=== PATIENT | female | born 2000 | race African-American/Black ===

== ENCOUNTER 2021-04-29 08:54 | Emergency (ER) | payer MEDICAID, SELFPAY ==
--- NOTE | ~2021-04-29 | US_ITS ---
EXAMINATION: US OBSTETRICAL ULTRASOUND CLINICAL INFORMATION: Right lower quadrant pain. Early . Quantitative beta hCG 45 COMPARISON: None. LMP: 03/07/2021. Gestational age by maternal dates is 7 weeks 4 days. Estimated date of delivery by maternal dates is 12/12/2021. TECHNIQUE: Transabdominal and transvaginal first trimester OB ultrasound FINDINGS: The uterus is anteverted and measures 8.2 x 4.3 x 4.8 cm in dimension. No intrauterine is seen. Endometrial thickness is normal measuring 1.1 cm. The cervix is normal appearing. The right ovary measures 1.4 x 4.3 x 1.9 cm. There is a 1.8 x 1.4 x 1.4 cm complex right ovarian cyst. The left ovary measures 2.5 x 4 x 1.5 cm. There is a 6 mm simple left ovarian cyst. There is no fluid in the pelvis. US/US OB pelvic and transvaginal IMPRESSION: No intrauterine seen. This may be due to early gestational age. Follow-up quantitative beta hCG and OB ultrasound recommended.
[2021-04-29 09:34] VITALS: BP 106/71; PULSE 102; RESP 20; TEMP 37.7; O2SAT 97; BMI 25.0
[2021-04-29 09:36] LABS: Appearance Urine HAZY; Color Urine YELLOW; Glucose Urine UA NEG (NEG); Leukocyte Esterase Urine NEG (NEG); Nitrite Urine NEG (NEG); PH 5.5 (5.0-8.0); Specific Gravity - Urine >= 1.030 (1.005-1.025); UACC Culture Trigger NO; Urine Blood TRACE (NEG); Urine Ketones 15 MG/DL (NEG); Urine Protein NEG (NEG-TRACE)
[2021-04-29] MEDS: Ibuprofen 600 MG TABLET PO (09:40)
[2021-04-29 09:43] LABS: COVID-19 Test Positive (Negative); IDNOW Serial# 9DD0AD1C
[2021-04-29 09:45] LABS: UPreg QC Valid YES; Urine Pregnancy WEAKLY POSITIVE (NEGATIVE)
[2021-04-29 09:51] LABS: Bacteria Urine 1+ /LPF; Mucus Urine 2+ /LPF; RBC Urine 0-2 /HPF (0); Squamous Epithelial Cell Urine 2+ /LPF; WBC Urine 0-2 /HPF (0-4)
[2021-04-29 09:57] LABS: Hematocrit 36.6 % (37.0-47.0); Hemoglobin 12.7 g/dl (12.0-16.0); Mean Corpuscular HGB Conc 34.7 g/dl (31.0-35.0); Mean Corpuscular Volume 92.2 fL (80.0-98.0); Mean Platelet Volume 9.5 fL (9.4-12.3); Platelet Count 254 X10*3/uL (160-400); Red Blood Count 3.97 X10*6/uL (4.20-5.50); Red Cell Distribution Width 11.9 % (11.0-16.0); White Blood Count 5.9 X10*3/uL (4.8-10.8)
[2021-04-29 10:15] LABS: Anion Gap 13 (12-20); Blood Urea Nitrogen 7 mg/dL (9-16); Calcium 9.6 mg/dL (8.4-10.2); Carbon Dioxide 21 mmol/L (22-29); Chloride 105 mmol/L (96-108); Creatinine Clr Calc Pharmacy 113.3; Estimated Glomerular Filt Rate > 60; Glucose Random 109 mg/dL (60-115); Potassium 3.7 mmol/L (3.3-5.1); Sodium 135 mmol/L (135-145)
[2021-04-29 10:48] LABS: Alanine Aminotransferase 25 U/L (0-31); Albumin Level 4.5 g/dL (3.5-5.0); Alkaline Phosphatase 44 U/L (39-117); Aspartate Amino Transferase 20 U/L (5-31); Bilirubin Direct 0.2 mg/dL (0.0-0.5); Bilirubin Total 0.3 mg/dL (0.0-1.0); Lipase 13 U/L (8-78); Total Protein 7.8 g/dL (6.5-8.0)
--- NOTE | 2021-04-29 10:53 | ED.GENADULT ---
HPI - General Adult General Chief complaint: General Medical Stated complaint: Body aches/fever Time Seen by Provider: 04/29/21 10:05 Source: patient Mode of arrival: ambulatory History of Present Illness HPI narrative: 20-year-old female with a past medical history of asthma presenting to the ED complaining of body aches, myalgias, fever T-max 102? since this morning. Also reports abdominal cramping since yesterday, LMP unknown. Denies cough, CP, SOB, ear pain, throat pain, vaginal bleeding, vaginal discharge, dysuria /hematuria Onset (ago): day(s) Related Data Allergies Allergy/AdvReac Type Severity Reaction Status Date / Time No Known Allergies Allergy Unverified 12/29/19 19:04 [No Known Allergies*] Review of Systems Review of Systems: Constitutional:+ Fever, No Chills, No Night Sweats, No Fatigue, + Malaise ENT/Mouth: No Ear Pain, No Nasal Congestion, No Sinus Pain, No Hoarseness, No sore throat, No Rhinorrhea Eyes: No Eye Pain, No Swelling, No Redness Cardiovascular: No Chest Pain, No SOB, No Orthopnea, No Edema, No Palpitations Respiratory: No Cough, No Sputum, No Wheezing, No Dyspnea Gastrointestinal: No Nausea, No Vomiting, No Diarrhea, No Constipation, + Abdominal cramping Genitourinary: No irregular bleeding, No Dysuria, No Urinary Frequency, No Hematuria, No Flank Pain, No Urinary Flow Changes Musculoskeletal: No joint pain, + Myalgias, No Joint Swelling Skin: No Skin Lesions, No rash Neuro: No Weakness, No Dizziness, No Headache Yes all other systems are reviewed and are negative [facility] Past Medical History Attestation statement: The following information was validated with the patient. Medical History Asthma Social History Social History Advance Directives: No Advance Directives Information Provided: No Physical Exam Vital Signs: Vital Signs: Last Vital Signs Temp 99.8 F 04/29/21 09:34 Pulse 102 H 04/29/21 09:34 Resp 20 04/29/21 09:34 BP 106/71 04/29/21 09:34 Pulse Ox 97 04/29/21 09:34 BMI result Body Mass Index 25.0 Const: General: cooperative, healthy appearing and no acute distress Orientation/consciousness: patient oriented x3 Limitations: no limitations HENMT: Head: Yes normal to inspection and Yes atraumatic Ears: hearing grossly normal bilaterally General nose exam: Normal external nose present Face and sinus: Yes normal facial exam Eyes: General: appearance normal, both eyes and all related structures EOM: EOMs intact bilaterally Neck: Neck: Yes normal visual inspection and Yes no meningeal signs Resp: Effort & Inspection: normal respiratory effort and no respiratory distress Auscultation: clear to auscultation bilaterally, no rales, no rhonchi and no wheezes Cardio: Rate: regular rate Heart sounds: S1 normal heart sound present and S2 normal heart sound present GI: Inspection: Yes normal to inspection Palpation (GI): Soft to palpation, Tenderness to palpation present (GI) ( left suprapubic area) in the LLQ (mild), no guarding and not rigid : Other: exam deferred Skin: Rashes: no rashes Wounds: no wounds Neuro: General: patient oriented x3 and no meningeal signs Gait exam (Neuro): Normal gait present Extrem: General: Yes normal to inspection and Yes no pedal edema Course Course Course Narrative: - UA with 15 ketones, not infected. Urine weakly positive > will obtain additional labs and pelvic ultrasound - COVID-19 positive - no leukocytosis. H&H stable. Labs otherwise unremarkable. Beta quant 45 -1205--US OB pelvic and transvaginal IMPRESSION: No intrauterine seen. This may be due to early gestational age. Follow-up quantitative beta hCG and OB ultrasound recommended. >> results discussed with patient including worrisome signs and symptoms and strict return precautions including continued fever, abdominal pain vaginal bleeding/ discharge, SOB, etc, and needed follow-up for repeat hCG in 48 hours. Patient verbalized understanding & feels safe for discharge home at this time Medical Decision Making MDM Narrative Medical decision making narrative: 20-year-old female with a past medical history of asthma presenting to the ED complaining of body aches, myalgias, fever T-max 102? since this morning. Also reports abdominal cramping since yesterday, LMP unknown. on exam low-grade fever 99.8, tachycardic likely from fever, lungs CTA, abdomen soft with mild LLQ/L suprapubic tenderness, no rebound or guarding. Denies related complaints including vaginal bleeding/ discharge. Concern for viral syndrome/COVID-19 vs vs ectopic. lower concern for diverticulitis. Rule out UTI plan: Labs, UA, urine , COVID-19 testing, +/- Ob ultrasound Medical Records Medical records reviewed: Yes I reviewed the patient's medical records. Lab Data Lab results reviewed: Yes I reviewed the patient's lab results. Result diagrams: 04/29/21 09:50 04/29/21 09:51 Labs: Lab Results 04/29/21 04/29/21 04/29/21 Range/Units 09:20 09:25 09:25 WBC (4.8-10.8) X10*3/uL RBC (4.20-5.50) X10*6/uL Hgb (12.0-16.0) g/dl Hct (37.0-47.0) % MCV (80.0-98.0) fL MCH (27.0-33.0) pg MCHC (31.0-35.0) g/dl RDW (11.0-16.0) % Plt Count (160-400) X10*3/uL MPV (9.4-12.3) fL Absolute Nucleated RBC (0.0-0.012) X10*3/uL Nucleated RBC % (auto) (0.0-0.2) /100WBC Sodium (135-145) mmol/L Potassium (3.3-5.1) mmol/L Chloride (96-108) mmol/L Carbon Dioxide (22-29) mmol/L Anion Gap (12-20) BUN (9-16) mg/dL Creatinine (0.5-1.4) mg/dL Estim Creat Clear Calc Estimated GFR Random Glucose (60-115) mg/dL Calcium (8.4-10.2) mg/dL Total Bilirubin (0.0-1.0) mg/dL Direct Bilirubin (0.0-0.5) mg/dL AST (5-31) U/L ALT (0-31) U/L Alkaline Phosphatase (39-117) U/L Total Protein (6.5-8.0) g/dL Albumin (3.5-5.0) g/dL Lipase (8-78) U/L Beta HCG, Quant mIU/mL Urine Color YELLOW Urine Appearance HAZY Urine pH 5.5 (5.0-8.0) Ur Specific [place] >= 1.030 H (1.005-1.025) Urine Protein NEG (NEG-TRACE) MG/DL Urine Glucose (UA) NEG (NEG) MG/DL Urine Ketones 15 (NEG) MG/DL Urine Blood TRACE (NEG) Urine Nitrite NEG (NEG) Ur Leukocyte Esterase NEG (NEG) Urine RBC 0-2 (0) /HPF Urine WBC 0-2 (0-4) /HPF Ur Squamous Epith Cells 2+ /LPF Urine Bacteria 1+ /LPF Urine Mucus 2+ /LPF Urine Test WEAKLY POSITIVE H (NEGATIVE) COVID-19 (STEPHEN) Positive A (Negative) COVID-19 Clin Com See Note 04/29/21 04/29/21 Range/Units 09:50 09:51 WBC 5.9 (4.8-10.8) X10*3/uL RBC 3.97 L (4.20-5.50) X10*6/uL Hgb 12.7 (12.0-16.0) g/dl Hct 36.6 L (37.0-47.0) % MCV 92.2 (80.0-98.0) fL MCH 32.0 (27.0-33.0) pg MCHC 34.7 (31.0-35.0) g/dl RDW 11.9 (11.0-16.0) % Plt Count 254 (160-400) X10*3/uL MPV 9.5 (9.4-12.3) fL Absolute Nucleated RBC 0.000 (0.0-0.012) X10*3/uL Nucleated RBC % (auto) 0.0 (0.0-0.2) /100WBC Sodium 135 (135-145) mmol/L Potassium 3.7 (3.3-5.1) mmol/L Chloride 105 (96-108) mmol/L Carbon Dioxide 21 L (22-29) mmol/L Anion Gap 13 (12-20) BUN 7 L (9-16) mg/dL Creatinine 0.74 (0.5-1.4) mg/dL Estim Creat Clear Calc 113.3 Estimated GFR > 60 Random Glucose 109 (60-115) mg/dL Calcium 9.6 (8.4-10.2) mg/dL Total Bilirubin 0.3 (0.0-1.0) mg/dL Direct Bilirubin 0.2 (0.0-0.5) mg/dL AST 20 (5-31) U/L ALT 25 (0-31) U/L Alkaline Phosphatase 44 (39-117) U/L Total Protein 7.8 (6.5-8.0) g/dL Albumin 4.5 (3.5-5.0) g/dL Lipase 13 (8-78) U/L Beta HCG, Quant 45 mIU/mL Urine Color Urine Appearance Urine pH (5.0-8.0) Ur Specific [place] (1.005-1.025) Urine Protein (NEG-TRACE) MG/DL Urine Glucose (UA) (NEG) MG/DL Urine Ketones (NEG) MG/DL Urine Blood (NEG) Urine Nitrite (NEG) Ur Leukocyte Esterase (NEG) Urine RBC (0) /HPF Urine WBC (0-4) /HPF Ur Squamous Epith Cells /LPF Urine Bacteria /LPF Urine Mucus /LPF Urine Test (NEGATIVE) COVID-19 (STEPHEN) (Negative) COVID-19 Clin Com Discharge Plan Discharge Clinical Impression: COVID-19, Patient Disposition: Home, Self-Care Instructions: (ED), COVID-19 (Coronavirus Disease 2019) (ED) Additional Instructions: you are very early . The ultrasound does not show any intrauterine , as expected due to early gestational age. However it is important to have repeat blood work in 48 hours to monitor level. It is possible this is an ectopic meaning not in the correct location with her abdominal pain. If pain persists /worsens, he developed vaginal bleeding/discharge please return to the ED immediately please call the OBGYN today, and establish care you also are positive for COVID-19. At this time you will be okay for discharge. Please self isolate for 10-14 days. Do not expose yourself to others. You may not go to work or school. Please continue to follow cold instructions and wash your hands frequently. You may take Tylenol / Motrin as directed on the bottle for pain or fever. If you have constant or persistent shortness of breath, fever unresolved with medications, chest pain, or your unable to eat or drink please return to the ED CDC Guidelines for home isolation: - Stay away from others - WEAR A MASK if you are sick AND STAY HOME - Cover your mouth and nose with a tissue when you cough or sneeze. Dispose of tissues in a lined trash can and wash your hands immediately with soap and water for at least 20 seconds. If soap and water are not available, clean hands with alcohol-based hand life trainer that contains at least 60% alcohol. - Clean your hands often with soap and water for at least 20 seconds - Avoid touching your eyes, nose and mouth with unwashed hands - Do not share dishes, drinking glasses, cups, eating utensils, towels, or bedding with other people in your home. After using these items, wash them thoroughly with soap and water or put in the vamp strap ironer. - Clean high-touch surfaces in your isolation area ( sick room and bathroom) every day; let a caregiver clean and disinfect high-touch surfaces in other areas of the home. Clean the area or item with soap and water or another detergent if it is dirty. Then, use a household disinfectant. - Limit contact with pets and animals: If you must care for a pet, wash your hands before and after interacting with them) Referrals: Yao Brown MD [Physician] - 2 days
[2021-04-29 10:54] LABS: HCG Quantitative 45 mIU/mL
[2021-04-29] MEDS: Acetaminophen 325 MG TABLET 650 MG PO (10:58)
--- NOTE | 2021-04-29 12:23 | PC.NURSE ---
patient left without discharge paperwork
== END 2021-04-29 12:24 | disposition home or self-care (01) ==
PROVIDERS: Physician Assistant; Emergency Provider Emergency Medicine
DX: O98.511 Other viral diseases complicating pregnancy, first trimester (principal); U07.1 COVID-19; Z3A.01 Less than 8 weeks gestation of pregnancy
CPT/HCPCS: 36415; 76801; 76817; 80048; 80076; 81001; 81025; 83690; 84702; 85027; 87635; 99283; 99284

== ENCOUNTER 2022-05-25 00:15 | Emergency (ER) | payer MEDICAID, SELFPAY ==
--- NOTE | 2022-05-25 | ECG_ITS ---
Test Reason : chest pain Blood Pressure : / mmHG Vent. Rate : 063 BPM Atrial Rate : 063 BPM P-R Int : 122 ms QRS Dur : 092 ms QT Int : 396 ms P-R-T Axes : 058 079 032 degrees QTc Int : 405 ms Normal sinus rhythm with sinus arrhythmia Normal ECG When compared with ECG of 22-JUL-2017 12:18, No significant change was found Referred By: Generic ED Physician Electronically Signed By:RENAE CELIS MD
--- NOTE | ~2022-05-25 | XR_ITS ---
EXAMINATION: XR CHEST CLINICAL INFORMATION: Chest pain COMPARISON: 07/22/2017 TECHNIQUE: 2 views of the chest were obtained. FINDINGS: Normal symmetric lung volumes. No parenchymal consolidation. No pleural effusion. No pneumothorax. Cardiomediastinal silhouette and pulmonary vascularity are within normal limits. No acute osseous abnormalities. XR/XR chest 2V IMPRESSION: Clear lungs
[2022-05-25 00:29] VITALS: BP 141/85; PULSE 68; RESP 16; TEMP 36.7; O2SAT 99; BMI 29.9
[2022-05-25 01:33] LABS: MANUAL DIFF FLAG NO
[2022-05-25 01:34] LABS: Basophils Absolute Auto 0.1 X10*3/uL (0.0-0.2); Basophils Percent Auto 0.5 % (0-2); Eosinophils Absolute Auto 0.2 X10*3/uL (0.0-0.4); Eosinophils Percent Auto 2.3 % (0-4); Hematocrit 40.4 % (37.0-47.0); Hemoglobin 13.8 g/dl (12.0-16.0); Imm Gran Abs Auto 0.02 X10*3/uL (0.00-0.03); Imm Gran Pct Auto 0.2 % (0.0-0.4); Lymphocytes Absolute Auto 4.6 X10*3/uL (1.2-4.9); Lymphocytes Percent Auto 49.6 % (20-40); Mean Corpuscular HGB Conc 34.2 g/dl (31.0-35.0); Mean Corpuscular Hemoglobin 31.4 pg (27.0-33.0); Mean Corpuscular Volume 91.8 fL (80.0-98.0); Mean Platelet Volume 9.4 fL (9.4-12.3); Monocytes Absolute Auto 0.7 X10*3/uL (0.1-1.2); Monocytes Percent Auto 7.4 % (2-11); Neutrophils Absolute Auto 3.7 x10*3/uL (2.0-8.3); Platelet Count 350 X10*3/uL (160-400); Red Cell Distribution Width 11.9 % (11.0-16.0); White Blood Count 9.2 X10*3/uL (4.8-10.8)
[2022-05-25 01:57] LABS: Alanine Aminotransferase 16 U/L (0-31); Albumin Level 4.2 g/dL (3.5-5.0); Alkaline Phosphatase 45 U/L (39-117); Anion Gap 14 (12-20); Aspartate Amino Transferase 19 U/L (5-31); Bilirubin Total 0.3 mg/dL (0.0-1.0); Blood Urea Nitrogen 12 mg/dL (9-16); Calcium 9.3 mg/dL (8.4-10.2); Carbon Dioxide 22 mmol/L (22-29); Chloride 107 mmol/L (96-108); Creatinine Clr Calc Pharmacy 134.1; Estimated Glomerular Filt Rate > 60; Glucose Random 88 mg/dL (60-115); Potassium 4.1 mmol/L (3.3-5.1); Sodium 139 mmol/L (135-145); Total Protein 7.3 g/dL (6.5-8.0)
[2022-05-25 02:17] LABS: Troponin-I High Sensitivity < 3.5 ng/L (<3.5-17.0)
--- NOTE | 2022-05-25 02:33 | ED_ITS ---
HPI - Chest Pain General Chief Complaint: Chest Pain Stated Complaint: CP, Migraine, dizziness Time Seen by Provider: 05/25/22 02:08 Source: patient Mode of arrival: ambulatory Limitations: no limitations History of Present Illness HPI narrative: 21-year-old female presents with 2 complaints of migraine headache and chest pain. Regarding the chest pain, substernal. It is pressure-like in nature. Does not radiate. It is worse with deep inspiration. It is not associated with exertion. She denies any shortness of breath. She does have a cough with clear mucus production. She denies Any fevers or chills. Regarding her migraine headache, is right-sided. The pain does not radiate. Associated with photo and phonophobia. She has no fevers. She denies any neck pain or stiffness. She denies any focal neurologic deficits. She does have history of migraine headaches. Her typical migraine headache can vary from location to location. Prior treatment today included tramadol with moderate help. It was associated with nonbilious vomiting. She did have some slight streaks of blood in her vomitus. Related Data Previous Rx's Medication Instructions Recorded famotidine 20 mg tablet 20 mg PO BID #20 tabs 05/25/22 prochlorperazine maleate 10 mg 10 mg PO Q8H PRN nausea and 05/25/22 tablet (Compazine) vomiting, headache #10 tabs Allergies Allergy/AdvReac Type Severity Reaction Status Date / Time No Known Allergies Allergy Unverified 12/29/19 19:04 [No Known Allergies*] Review of Systems Review of Systems: CONSTITUTIONAL: Denies weight loss, fever and chills. HEENT: Denies changes in vision and hearing. RESPIRATORY: Denies SOB and cough. CV: Denies palpitations + CP. GI: Denies abdominal pain, + nausea, vomiting. : Denies dysuria and urinary frequency. MSK: Denies myalgia and joint pain. SKIN: Denies rash and pruritus. NEUROLOGICAL: Positive headache and - syncope. PSYCHIATRIC: Denies recent changes in mood. Denies anxiety and depression. All other ROS are negative unless in HPI PMFSH Past Medical History Medical History Asthma Social History Social History Smoked in Last 30 Days: No Use of substances other than those prescribed or required for medical reasons: Yes Substance Use Type: Marijuana Advance Directives: No Patient : No Physical Exam Vital Signs: Vital Signs: Last Vital Signs Temp 98.1 F 05/25/22 00:29 Pulse 68 05/25/22 00:29 Resp 16 05/25/22 00:29 BP 141/85 H 05/25/22 00:29 Pulse Ox 99 05/25/22 00:29 O2 Del Method 05/25/22 00:29 BMI result Body Mass Index 29.9 GEN: Well developed, no acute distress, alert, oriented HEENT: Normocephalic, atraumatic, normal external ears, nose appears normal, no oropharyngeal edema or exudates Eyes: Normal to appearance Neck: Supple, no lymphadenopathy Respiratory: Talks in complete sentences, no respiratory distress, clear to auscultation bilaterally Cardiovascular: Regular rate and rhythm, no murmurs rubs or gallops Abdomen: Soft, nontender, nondistended, no guarding, no rebound Back: No CVA tenderness Extremities: No clubbing cyanosis or edema Neurologic: No focal neurologic deficits, cranial nerves 2-12 intact, strength is 5/5 bilaterally, gait normal Skin: No rash Course Course Course Narrative: 21-year-old female with no major medical problems presents with chest pain and migraine headache. Chest pain is atypical, not associated with exertion. She has no cardiac history. It is substernal in tight nature. It seems to be associated with nausea vomiting. Is worse with deep inspiration. Patient has no history of PE or DVT. She has no risk factors such as recent long distance travel, immobilization or recent surgery. Her chest pain was not reproducible. Chest x-ray was clear. EKG showed no cardiac ischemia or cardiac dysrhythmia. At this time, doubt her symptoms are cardiac, pulmonary embolus especially since her PERC score is 0. Is quite possible that this could be reflux related specially given the nausea and vomiting. Will start patient on an H2 alexandro. She can follow up with her primary care provider for progressive symptoms. Regarding patient's migraine headache. She does have a history migraine heada ches. They vary from location location. Her other symptoms or other was typical for her. The patient received Toradol, Tylenol, famotidine and Reglan. Patient did not wish to stay at this time M wants to be discharged. There are no focal deficits, no trauma, doubt need for imaging studies at this time. I discussed all results with the patient, all discharge instructions, discussed side effects of medications. All questions were addressed and answered. Patient is aware of when she should return back to the emergency department including progression of chest pain, worsening migraine or any other concerning symptoms. Medical Decision Making Medical Decision Making [facility] Narrative: 21-year-old female with no major medical problems presents with chest pain and migraine headache. Chest pain is atypical, not associated with exertion. She has no cardiac history. It is substernal in tight nature. It seems to be associated with nausea vomiting. Is worse with deep inspiration. Patient has no history of PE or DVT. She has no risk factors such as recent long distance travel, immobilization or recent surgery. Her chest pain was not reproducible. Chest x-ray was clear. EKG showed no cardiac ischemia or cardiac dysrhythmia. At this time, doubt her symptoms are cardiac, pulmonary embolus especially since her PERC score is 0. Is quite possible that this could be reflux related specially given the nausea and vomiting. Will start patient on an H2 alexandro. She can follow up with her primary care provider for progressive symptoms. Regarding patient's migraine headache. She does have a history migraine headaches. They vary from location location. Her other symptoms or other was typical for her. The patient received Toradol, Tylenol, famotidine and Reglan. Patient did not wish to stay at this time M wants to be discharged. There are no focal deficits, no trauma, doubt need for imaging studies at this time. I discussed all results with the patient, all discharge instructions, discussed side effects of medications. All questions were addressed and answer ed. Patient is aware of when she should return back to the emergency department including progression of chest pain, worsening migraine or any other concerning symptoms. Differential Diagnosis Differential Diagnoses: The differential diagnosis associated with the presentation includes ( Chest pain, atypical chest pain, cardiac chest pain, bronchitis, pneumonia, reflux, migraine headache, tension headache, cluster headache) migraine headache, atypical chest Admission/Observation Consideration of admission/observation: Escalation of care including admission/o bservation considered ( no indication for hospitalization, chest pain is atypical, unlikely to be cardiac, migraine headache is also typical) Lab Data [facility] Lab Attestation statement: I reviewed the patient's lab results. 05/25/22 00:02 05/25/22 01:26 Labs: Lab Results 05/25/22 05/25/22 05/25/22 Range/Units 00:02 01:26 01:26 WBC 9.2 (4.8-10.8) X10*3/uL RBC 4.40 (4.20-5.50) X10*6/uL Hgb 13.8 (12.0-16.0) g/dl Hct 40.4 (37.0-47.0) % MCV 91.8 (80.0-98.0) fL MCH 31.4 (27.0-33.0) pg MCHC 34.2 (31.0-35.0) g/dl RDW 11.9 (11.0-16.0) % Plt Count 350 D (160-400) X10*3/uL MPV 9.4 (9.4-12.3) fL Immature Gran % (Auto) 0.2 (0.0-0.4) % Neut % (Auto) 40.0 L (45-73) % Lymph % (Auto) 49.6 H (20-40) % [place] % (Auto) 7.4 (2-11) % Eos % (Auto) 2.3 (0-4) % Baso % (Auto) 0.5 (0-2) % Lymph # (Auto) 4.6 (1.2-4.9) X10*3/uL [place] # (Auto) 0.7 (0.1-1.2) X10*3/uL Eos # (Auto) 0.2 (0.0-0.4) X10*3/uL Baso # (Auto) 0.1 (0.0-0.2) X10*3/uL Abs Immat Gran (auto) 0.02 (0.00-0.03) X10*3/uL Absolute Neuts (auto) 3.7 (2.0-8.3) x10*3/uL Absolute Nucleated RBC 0.000 (0.0-0.012) X10*3/uL Nucleated RBC % (auto) 0.0 (0.0-0.2) /100WBC Sodium 139 (135-145) mmol/L Potassium 4.1 (3.3-5.1) mmol/L Chloride 107 (96-108) mmol/L Carbon Dioxide 22 (22-29) mmol/L Anion Gap 14 (12-20) BUN 12 (9-16) mg/dL Creatinine 0.70 (0.5-1.4) mg/dL Estim Creat Clear Calc 134.1 Estimated GFR > 60 Random Glucose 88 (60-115) mg/dL Calcium 9.3 (8.4-10.2) mg/dL Total Bilirubin 0.3 (0.0-1.0) mg/dL AST 19 (5-31) U/L ALT 16 (0-31) U/L Alkaline Phosphatase 45 (39-117) U/L Troponin I High Sens < 3.5 (<3.5-17.0) ng/L Total Protein 7.3 (6.5-8.0) g/dL Albumin 4.2 (3.5-5.0) g/dL Independent Interpretation I performed an independent interpretation of an: EKG ( normal sinus rhythm heart rate 63, nonspecific T-wave flattening in lead 3, no acute ST elevations depressions, normal intervals) and Plain X-Ray ( no acute cardiopulmonary disease) Radiology Impression Discussion of test interpretation with radiology: I have reviewed the radiologist's reading. (IMPRESSION: Clear lungs Dictated By:Elvis Hdez MDSigned By:<Electronically signed by Elvis Hdez MD in [place]>05/25/22 0104) External Record Review External record reviewed: Outpatient record Tests considered The following testing was considered but not selected: CT scan of head Prescription Management I considered prescription management with: Pain Medication Discharge Plan Discharge Clinical Impression: Atypical chest pain, Migraine Patient Disposition: Home, Self-Care Instructions: Chest Pain (ED), Migraine Headache (ED) Prescriptions: New prochlorperazine maleate [Compazine] 10 mg tablet 10 mg PO Q8H PRN (Reason: nausea and vomiting, headache) Qty: 10 0RF famotidine 20 mg tablet 20 mg PO BID Qty: 20 0RF Referrals: Stephy Espitia [Emergency Nurse] - 3 days
[2022-05-25] MEDS: Acetaminophen 325 MG TABLET 975 MG PO (02:45)
[2022-05-25] MEDS: Famotidine 20 MG TABLET PO (02:46)
[2022-05-25] MEDS: Metoclopramide HCl 10 MG TABLET PO (02:51)
--- NOTE | 2022-05-25 02:54 | PC.NURSE ---
pt medicated according to mar. pt refused ketorolac im. dr navarro made aware. pt boyfriend at bedside. pt reports 8/10 pain. discharge packet provided to pt. pt verbalized understanding of discharge plan
== END 2022-05-25 02:56 | disposition home or self-care (01) ==
PROVIDERS: Emergency Provider Emergency Medicine
DX: R07.89 Other chest pain (principal); G43.909 Migraine, unspecified, not intractable, without status migrainosus; R42 Dizziness and giddiness; Z79.899 Other long term (current) drug therapy
CPT/HCPCS: 36415; 71046; 80053; 84484; 85025; 93005; 96372; 99284

== ENCOUNTER 2022-05-28 22:45 | Emergency (ER) | payer MEDICAID, SELFPAY ==
--- NOTE | 2022-05-28 | ECG_ITS ---
Test Reason : cp Blood Pressure : / mmHG Vent. Rate : 087 BPM Atrial Rate : 087 BPM P-R Int : 132 ms QRS Dur : 084 ms QT Int : 334 ms P-R-T Axes : 056 074 -07 degrees QTc Int : 401 ms Normal sinus rhythm T wave abnormality, consider inferior ischemia Abnormal ECG When compared with ECG of 25-MAY-2022 01:13, T wave inversion now evident in Inferior leads Nonspecific T wave abnormality now evident in Anterolateral leads Referred By: Generic ED Physician Electronically Signed By:Daljit Jimenes
--- NOTE | ~2022-05-28 | XR_ITS ---
EXAMINATION: XR CHEST CLINICAL INFORMATION: Vomiting. Chest pain. Rule out pneumomediastinum. COMPARISON: 05/25/2022 TECHNIQUE: 2 views of the chest were obtained. FINDINGS: Cardiac leads overlie the chest. The lungs are well expanded. There is no focal consolidation, edema, or effusion. No pneumothorax. The cardiomediastinal silhouette is within normal limits. There is no pneumomediastinum. No acute osseous abnormality. No free intraperitoneal air. XR/XR chest 2V IMPRESSION: Clear lungs. No evidence of pneumomediastinum.
[2022-05-28 22:46] VITALS: BP 125/85; PULSE 95; RESP 18; TEMP 36.8; O2SAT 97; BMI 29.9
[2022-05-28 23:06] LABS: MANUAL DIFF FLAG NO
[2022-05-28 23:07] LABS: Basophils Percent Auto 0.3 % (0-2); Eosinophils Absolute Auto 0.2 X10*3/uL (0.0-0.4); Hematocrit 40.4 % (37.0-47.0); Hemoglobin 13.7 g/dl (12.0-16.0); Imm Gran Abs Auto 0.01 X10*3/uL (0.00-0.03); Imm Gran Pct Auto 0.1 % (0.0-0.4); Lymphocytes Absolute Auto 3.7 X10*3/uL (1.2-4.9); Lymphocytes Percent Auto 40.5 % (20-40); Mean Corpuscular HGB Conc 33.9 g/dl (31.0-35.0); Mean Corpuscular Hemoglobin 31.3 pg (27.0-33.0); Mean Corpuscular Volume 92.2 fL (80.0-98.0); Mean Platelet Volume 9.5 fL (9.4-12.3); Monocytes Absolute Auto 0.7 X10*3/uL (0.1-1.2); Monocytes Percent Auto 8.1 % (2-11); Neutrophils Absolute Auto 4.4 x10*3/uL (2.0-8.3); Platelet Count 350 X10*3/uL (160-400); Red Blood Count 4.38 X10*6/uL (4.20-5.50); Red Cell Distribution Width 11.9 % (11.0-16.0)
[2022-05-28 23:26] LABS: Anion Gap 13 (12-20); Blood Urea Nitrogen 15 mg/dL (9-16); Calcium 9.6 mg/dL (8.4-10.2); Carbon Dioxide 24 mmol/L (22-29); Chloride 107 mmol/L (96-108); Creatinine Clr Calc Pharmacy 118.8; Estimated Glomerular Filt Rate > 60; Glucose Random 92 mg/dL (60-115); Potassium 3.9 mmol/L (3.3-5.1); Sodium 140 mmol/L (135-145)
[2022-05-28 23:31] LABS: HCG Quantitative < 2 mIU/mL; Troponin-I High Sensitivity < 3.5 ng/L (<3.5-17.0)
[2022-05-28 23:53] VITALS: BP 112/54; PULSE 62; RESP 16; TEMP 36.6; O2SAT 99
--- NOTE | 2022-05-29 00:03 | ED_ITS ---
HPI - Chest Pain General Chief Complaint: Chest Pain Stated Complaint: Chest pain, vomiting Time Seen by Provider: 05/28/22 23:26 Source: patient and family Mode of arrival: ambulatory Limitations: no limitations History of Present Illness HPI narrative: 21-year-old female presented with chest pain and vomiting brown vomitus this morning. Patient smokes marijuana on a daily basis she smoke earlier in the morning then started to have chest pain and followed by vomiting brown vomitus x1. Now patient has no nausea or vomiting no abdominal pain patient tolerated p.o. intake before coming to the emergency room but still have the chest pain that has been constant since she vomited, described it as burning sensation in the epigastric and mid chest, no radiation was only associated with 1 time vomiting with brown vomitus, patient has been eating with her normal appetite. No fever, no chills declined using any other drugs other than smoking marijuana today. Patient was evaluated for similar presentation 4 days ago. Related Data Previous Rx's Medication Instructions Recorded famotidine 20 mg tablet 20 mg PO BID #20 tabs 05/25/22 prochlorperazine maleate 10 mg 10 mg PO Q8H PRN nausea and 05/25/22 tablet (Compazine) vomiting, headache #10 tabs omeprazole magnesium 20 mg 20 mg PO DAILY #30 tabs 05/29/22 tablet,delayed release (Prilosec OTC) Allergies Allergy/AdvReac Type Severity Reaction Status Date / Time No Known Allergies Allergy Unverified 12/29/19 19:04 [No Known Allergies*] Review of Systems Review of Systems: All other systems are reviewed and are negative Constitutional: Reports as per HPI and Reports no additional constitutional complaints Eyes: Reports as per HPI and Reports no additional eye complaints Reports system reviewed and no additional complaints, except as documented Cardiovascular: Reports as per HPI and Reports no additional cardiovascular complaints Respiratory: Reports as per HPI and Reports no additional respiratory complaints Gastrointestinal: Reports as per HPI and Reports no additional gastrointestinal complaints Genitourinary: Reports no additional female genitourinary complaints Musculoskeletal: Reports no additional musculoskeletal complaints Skin/Breast: Reports system reviewed and no additional complaints, except as docu Psychiatric: Reports no additional psychiatric complaints Endocrine: Reports no additional endocrine complaints Hematologic/Lymphatic: Reports no additional hematologic/lymphatic complaints Allergic/Immunologic: Reports no additional allergic/immunologic complaints Reports system reviewed and no additional complaints, except as documented and Reports Abnormal speech present PMFSH Past Medical History Medical History Asthma Social History Social History Substance Use Type: Marijuana Advance Directives: No Advance Directives Information Provided: Yes Physical Exam Vital Signs: Vital Signs: Last Vital Signs Temp 97.9 F 05/28/22 23:53 Pulse 62 05/28/22 23:53 Resp 16 05/28/22 23:53 BP 112/54 L 05/28/22 23:53 Pulse Ox 99 05/28/22 23:53 O2 Del Method 05/28/22 23:53 BMI result Body Mass Index 29.9 Vital signs have been reviewed as appeared to be correct. Blood pressure normal. Heart rate normal. Respiration rate normal. Temperature normal. Ox ygen saturation normal. Appearance: Alert. Oriented X3. No acute distress. Head: Normal external exam. Normocephalic. Atraumatic. No Bradley signs noted. No raccoon eyes noted Eyes: PERRLA. EOMI. Conjunctiva and sclera normal. Eyelids normal. ENT: TM's Normal. Pharynx normal. Uvula midline. Moist mucous membranes. No trismus noted. No drooling noted. No muffled voice noted. Neck: Normal inspection. Neck supple. FROM. No adenopathy. Thyroid Normal. No meningeal signs. No neck mass noted. CVS: Normal heart rate and rhythm. Heart sound normal. No murmurs noted. Pulses normal throughout. Respiratory: No respiratory distress. Painless inspiration. Breath sounds normal. No wheezes/rales/rhonchi noted. Chest nontender. No accessory muscle usage noted or decreased air movement noted. Abdomen: Soft and nontender. Bowel sounds normal in all 4 quadrants. No dist ention noted. No organomegaly noted. No visible injury noted. Back: No CVA tenderness. Full range of motion noted. Skin: Skin warm and dry. Normal skin color. Normal skin turgor. No rashes/lesi ons/lacerations noted. Extremities: No lower extremity edema. Extremities exhibit normal range of motion. Extremities nontender. Neuro: Oriented X 3. Cranial nerve exam: II-XII are grossly intact No motor deficit. No sensory deficit. Reflexes normal. Course Course Course Narrative: -year-old female came in for chest/epigastric pain evaluation, patient with marijuana use disorder. Patient's symptoms thought to be secondary to gastritis. Unremarkable workup cardiac workup. Patient is able to tolerate p.o. intake in the emergency department with improvement of patient's symptoms. Medical Decision Making Differential Diagnosis Differential Diagnoses: The differential diagnosis associated with the presentation includes (Marijuana induced gastritis, vomiting, anemia, GI bleed, cardiac chest pain.) Lab Data MDM Lab Attestation statement: I reviewed the patient's lab results. 05/28/22 23:02 05/28/22 23:02 Labs: Lab Results 05/28/22 05/28/22 05/28/22 Range/Units 23:02 23:02 23:02 WBC 9.0 (4.8-10.8) X10*3/uL RBC 4.38 (4.20-5.50) X10*6/uL Hgb 13.7 (12.0-16.0) g/dl Hct 40.4 (37.0-47.0) % MCV 92.2 (80.0-98.0) fL MCH 31.3 (27.0-33.0) pg MCHC 33.9 (31.0-35.0) g/dl RDW 11.9 (11.0-16.0) % Plt Count 350 (160-400) X10*3/uL MPV 9.5 (9.4-12.3) fL Immature Gran % (Auto) 0.1 (0.0-0.4) % Neut % (Auto) 49.0 (45-73) % Lymph % (Auto) 40.5 H (20-40) % [place] % (Auto) 8.1 (2-11) % Eos % (Auto) 2.0 (0-4) % Baso % (Auto) 0.3 (0-2) % Lymph # (Auto) 3.7 (1.2-4.9) X10*3/uL [place] # (Auto) 0.7 (0.1-1.2) X10*3/uL Eos # (Auto) 0.2 (0.0-0.4) X10*3/uL Baso # (Auto) 0.0 (0.0-0.2) X10*3/uL Abs Immat Gran (auto) 0.01 (0.00-0.03) X10*3/uL Absolute Neuts (auto) 4.4 (2.0-8.3) x10*3/uL Absolute Nucleated RBC 0.000 (0.0-0.012) X10*3/uL Nucleated RBC % (auto) 0.0 (0.0-0.2) /100WBC Sodium 140 (135-145) mmol/L Potassium 3.9 (3.3-5.1) mmol/L Chloride 107 (96-108) mmol/L Carbon Dioxide 24 (22-29) mmol/L Anion Gap 13 (12-20) BUN 15 (9-16) mg/dL Creatinine 0.79 (0.5-1.4) mg/dL Estim Creat Clear Calc 118.8 Estimated GFR > 60 Random Glucose 92 (60-115) mg/dL Calcium 9.6 (8.4-10.2) mg/dL Troponin I High Sens < 3.5 (<3.5-17.0) ng/L Beta HCG, Quant < 2 mIU/mL Independent Interpretation I performed an independent interpretation of an: EKG (Normal sinus rhythm at 87 beats per minutes, normal axis deviation, normal intervals, diffuse T-wave in version and flattening) and Plain X-Ray (No acute pathology) Radiology Impression Discussion of test interpretation with radiology: I have reviewed the radiologist's reading. Discharge Plan Discharge Clinical Impression: Atypical chest pain, Gastritis Patient Disposition: Home, Self-Care Instructions: Gastritis (ED) Prescriptions: New omeprazole magnesium [Prilosec OTC] 20 mg tablet,delayed release (DR/EC) 20 mg PO DAILY Qty: 30 0RF No Action prochlorperazine maleate [Compazine] 10 mg tablet 10 mg PO Q8H PRN (Reason: nausea and vomiting, headache) Qty: 10 0RF famotidine 20 mg tablet 20 mg PO BID Qty: 20 0RF
--- NOTE | 2022-05-29 00:18 | PC.NURSE ---
this rn assumed care of pt @ 2330. pt changed into hospital gown and placed on computer customer support specialist. pt awaiting to be seen by ed provider
[2022-05-29] MEDS: Famotidine 20 MG TABLET PO (00:31)
[2022-05-29] MEDS: Magnesium Hydrox/Alum Hydrox 30 ML ORAL.SUSP PO (00:31)
--- NOTE | 2022-05-29 01:22 | PC.NURSE ---
per dr lares pt provided with chelsea laxmi and crackers. pt reports to this rn that when using the restroom pt vomited a small amount of brown vomit. pt partner in bed with pt at this time. this was reported to dr lares. awaiting orders at this time
[2022-05-29] MEDS: Ondansetron ODT 4 MG TAB.RAPDIS TRANSLINGU (01:30)
[2022-05-29 01:33] VITALS: BP 121/80; PULSE 63; RESP 16; O2SAT 99
--- NOTE | 2022-05-29 01:36 | PC.NURSE ---
pt partner laying on pt at time of discharge. vss. pt medicated according to mar. pt provided with discharge packet. pt verbalized understanding of discharge plan. pt ambulatory at time of discharge
== END 2022-05-29 01:39 | disposition home or self-care (01) ==
PROVIDERS: Emergency Provider Emergency Medicine
DX: R07.89 Other chest pain (principal); K29.70 Gastritis, unspecified, without bleeding; F12.90 Cannabis use, unspecified, uncomplicated
CPT/HCPCS: 36415; 71046; 80048; 84484; 84702; 85025; 93005; 99283; 99284

== ENCOUNTER 2022-06-29 23:06 | Emergency (ER) | payer MEDICAID, SELFPAY | END 2022-06-30 00:05 | disposition left against medical advice (07) | PROVIDERS: Emergency Provider Emergency Medicine | DX: R07.89 Other chest pain (principal); R42 Dizziness and giddiness ==

== ENCOUNTER 2023-06-23 13:18 | Emergency (ER) | payer MEDICAID, SELFPAY ==
[2023-06-23 13:31] VITALS: BP 128/80; PULSE 72; RESP 16; TEMP 37; O2SAT 98; BMI 31.6
--- NOTE | 2023-06-23 13:35 | ED.GENADULT ---
HPI - General Adult General Chief complaint: Upper Respiratory Symptoms Stated complaint: Sore throat History of Present Illness HPI narrative: Left without completiont of treatment Related Data Previous Rx's Medication Instructions Recorded famotidine 20 mg tablet 20 mg PO BID #20 tabs 05/25/22 prochlorperazine maleate 10 mg 10 mg PO Q8H PRN nausea and 05/25/22 tablet (Compazine) vomiting, headache #10 tabs omeprazole magnesium 20 mg 20 mg PO DAILY #30 tabs 05/29/22 tablet,delayed release (Prilosec OTC) ondansetron 4 mg disintegrating 4 mg PO Q8-12H PRN nausea and 05/29/22 tablet vomiting #7 tabs Allergies Allergy/AdvReac Type Severity Reaction Status Date / Time No Known Allergies Allergy Unverified 12/29/19 19:04 [No Known Allergies*] PMFSH Past Medical History Medical History Asthma Social History Social History Substance Use Type: Marijuana Advance Directives: No Advance Directives Information Provided: No Physical Exam ED Vital Signs: Vital Signs - 24 hr 06/23/23 13:31 Temperature 98.6 F Pulse Rate 72 Respiratory Rate 16 Blood Pressure 128/80 Pulse Oximetry 98 Oxygen Delivery Method Room Air BMI result Body Mass Index 31.6 Course Course Course Narrative: RME: 22 yold female presents to the ED for sore throat, runny nose, bilateral ear pain, for two weeks. SARS and strep ordered Discharge Plan Discharge Clinical Impression: Upper respiratory infection Patient Disposition: Left W/O Completing Treatment Prescriptions: No Action prochlorperazine maleate [Compazine] 10 mg tablet 10 mg PO Q8H PRN (Reason: nausea and vomiting, headache) Qty: 10 0RF famotidine 20 mg tablet 20 mg PO BID Qty: 20 0RF omeprazole magnesium [Prilosec OTC] 20 mg tablet,delayed release (DR/EC) 20 mg PO DAILY Qty: 30 0RF ondansetron 4 mg tablet,disintegrating 4 mg PO Q8-12H PRN (Reason: nausea and vomiting) Qty: 7 0RF Discharge Date/Time: 06/23/23 15:12
== END 2023-06-23 15:12 | disposition left against medical advice (07) ==
PROVIDERS: Emergency Provider Emergency Medicine
DX: J02.9 Acute pharyngitis, unspecified (principal); J06.9 Acute upper respiratory infection, unspecified
CPT/HCPCS: 99281

== ENCOUNTER 2023-09-26 15:52 | Emergency (ER) | payer MEDICAID, SELFPAY ==
[2023-09-26 16:03] VITALS: BP 126/80; PULSE 98; RESP 18; TEMP 36.2; O2SAT 98; BMI 30.8
--- NOTE | 2023-09-26 16:05 | ED.FEMALEGU ---
HPI - Female Genitourinary General Chief complaint: Urogenital-Female Stated complaint: vag discharge Time Seen by Provider: 09/26/23 16:22 Source: patient, RN notes reviewed and old records reviewed Mode of arrival: ambulatory History of Present Illness ED Provider: Courtney Bryant PA-C [facility] Narrative: 22-year-old female with no significant past medical history presenting to the ED complaining internal vaginal irritation/discomfort x1 week s/p new sexual partner without the use of protection. Denies vaginal discharge, lesions, vaginal bleeding, abdominal pain, back pain, nausea, vomiting, dysuria/hematuria. LMP 09/20/2023 Related Data Previous Rx's ?Medication ?Instructions ?Recorded famotidine 20 mg tablet 20 mg PO BID #20 tabs 05/25/22 prochlorperazine maleate 10 mg 10 mg PO Q8H PRN nausea and 05/25/22 tablet (Compazine) vomiting, headache #10 tabs omeprazole magnesium 20 mg 20 mg PO DAILY #30 tabs 05/29/22 tablet,delayed release (Prilosec OTC) ondansetron 4 mg disintegrating 4 mg PO Q8-12H PRN nausea and 05/29/22 tablet vomiting #7 tabs doxycycline hyclate 100 mg tablet 100 mg PO BID 7 days #14 tabs 09/26/23 Allergies Allergy/AdvReac Type Severity Reaction Status Date / Time No Known Allergies Allergy Verified 09/26/23 16:08 [No Known Allergies*] Review of Systems Review of Systems: Constitutional: No Fever, No Chills, No Night Sweats, No Fatigue, No Malaise ENT/Mouth: No Hearing loss, No Ear Pain, No Hoarseness, No sore throat, No Rhinorrhea, No Swallowing Difficulty Cardiovascular: No Chest Pain, No SOB Respiratory: No Cough, No Dyspnea Gastrointestinal: No Nausea, No Vomiting, No Diarrhea, No Constipation, No Abdominal pain Genitourinary: No irregular bleeding, +vaginal irritation, No Dysuria, No Hematuria, No Urinary Incontinence/retention,No Flank Pain Musculoskeletal: No joint pain, No Myalgias, No Joint Swelling Skin: No Skin Lesions, No rash Yes all other systems are reviewed and are negative Constitutional: Constitutional: Reports as per [facility] Past Medical History Attestation statement: The following information was validated with the patient. Source: old records reviewed Medical History Asthma Social History Social History Substance Use Type: Marijuana Advance Directives: No Advance Directives Information Provided: No Physical Exam Vital Signs: Vital Signs: Last Vital Signs Temp 98.4 F 09/26/23 18:13 Pulse 59 09/26/23 18:13 Resp 16 09/26/23 18:13 BP 115/64 09/26/23 18:13 Pulse Ox 97 09/26/23 18:13 O2 Del Method Room Air 09/26/23 18:13 BMI result Body Mass Index 30.8 Const: General: cooperative, healthy appearing and no acute distress Orientation/consciousness: patient oriented x3 Limitations: no limitations HEENT: Head: Yes normal to inspection and Yes atraumatic Ears: hearing grossly normal bilaterally General nose exam: Normal external nose present Face and sinus: Yes normal facial exam Eyes: General: appearance normal, both eyes and all related structures EOM: EOMs intact bilaterally Neck: Neck: Yes normal visual inspection and Yes no meningeal signs Resp: Effort & Inspection: normal respiratory effort and no respiratory distress Cardio: Rate: regular rate GI: Inspection: Yes normal to inspection Palpation (GI): Soft to palpation, nontender, no guarding and not rigid : Speculum Exam - Vagina: normal appearance of the vagina, abnormal vaginal discharge clear and yellow, No vaginal bleeding and nontender Speculum Exam - Cervix: normal appearance of the cervix Bimanual exam- vagina & uterus: normal bimanual exam and no cervical motion tenderness Bimanual Exam- Adnexa, other: normal adnexae OB/external & speculum: No vaginal bleeding Skin: Rashes: no rashes Wounds: no wounds Neuro: General: patient oriented x3, tone normal and no meningeal signs Cranial nerves: Yes CN's II-XII intact bilaterally Gait exam (Neuro): Normal gait present Extrem: General: Yes normal to inspection Course Course Course Narrative: This is a Rapid Medical Examination (RME) performed by Jeevan Pires PA-C in triage. Full HPI, ROS, assessment and treatment plan per primary provider in the Main ED. 22 yo female presents to the ER for evaluation of internal vaginal irritation for the last 1 week. New sexual partner. No vaginal discharge. LMP 09/20/23. Plan: exam in [facility] and negative Results discussed with patient including worrisome signs and symptoms and strict return precautions, and when to return to the emergency department. They verbalized understanding and feel safe for discharge at this time. Medications Administered Discontinued Medications Generic Name Dose Route Start Last Admin Trade Name Baudilio PRN Reason Stop Dose Admin Ceftriaxone Sodium 500 mg/ 0 mg 09/26/23 16:47 09/26/23 18:00 Lidocaine HCl 1 ml IM 09/26/23 16:48 350 kit ONCE ONE Administration Doxycycline Monohydrate 100 mg 09/26/23 16:47 09/26/23 18:00 Doxycycline Monohydrate 100 Mg Capsule PO 09/26/23 16:48 100 mg ONCE ONE Administration Medical Decision Making Medical Decision Making [facility] Narrative: 22-year-old female with no significant past medical history presenting to the ED complaining internal vaginal irritation/discomfort x1 week s/p new sexual partner without the use of protection. On exam vital signs stable, NAD, nontoxic appearing, abdomen soft/nontender. On pelvic exam clear/yellow vaginal discharge noted. No CMT or adnexal tenderness/masses or lesions. Concern for STI. Low suspicion for TOA, ovarian torsion, appendicitis/diverticulitis Plan: UA, STI testing, empiric treatment with IM Rocephin and p.o. doxycycline Please refer to course for remaining clinical decision making, interpretation of labs/imaging results, and discussions with consultants and/or family members. Differential Diagnosis Differential Diagnoses: The differential diagnosis associated with the presentation includes As above Lab Data [facility] Lab Attestation statement: I reviewed the patient's lab results. Labs: Lab Results 09/26/23 Range/Units 17:07 Urine Color Yellow Urine Appearance Clear Urine pH 5.5 (5.0-9.0) Ur Specific [place] 1.010 (1.005-1.025) Urine Protein Negative (Neg-Trace) mg/dL Urine Glucose (UA) Negative (Negative) mg/dL Urine Ketones Negative (Negative) mg/dL Urine Blood Negative (Negative) Urine Nitrite Negative (Negative) Ur Leukocyte Esterase Negative (Negative) Urine Test NEGATIVE (NEGATIVE) Radiology Impression Discussion of test interpretation with radiology: I have reviewed the radiologist's reading. External Record Review External record reviewed: Inpatient record, Office record, Outpatient record, Prior outpatient labs, Prior outpatient radiology, Primary care record and Outside ED record Tests considered The following testing was considered but not selected: As above Prescription Management I considered prescription management with: Antibiotic Discharge Plan Discharge Clinical Impression: Vaginal discharge Patient Disposition: Home, Self-Care Instructions: Vaginal Discharge (ED) Additional Instructions: You were tested for sexually transmitted infections. The results will be back in 2-3 days, you will be contacted with positive results only Please refrain from any sexual contact until you know the results of her cultures. Doxycycline as an antibiotic take until completion. We are treating for gonorrhea and chlamydia If symptoms persist or worsen return to the emergency department You need to establish care with an OBGYN Prescriptions: New doxycycline hyclate 100 mg tablet 100 mg PO BID 7 Days Qty: 14 0RF No Action prochlorperazine maleate [Compazine] 10 mg tablet 10 mg PO Q8H PRN (Reason: nausea and vomiting, headache) Qty: 10 0RF famotidine 20 mg tablet 20 mg PO BID Qty: 20 0RF omeprazole magnesium [Prilosec OTC] 20 mg tablet,delayed release (DR/EC) 20 mg PO DAILY Qty: 30 0RF ondansetron 4 mg tablet,disintegrating 4 mg PO Q8-12H PRN (Reason: nausea and vomiting) Qty: 7 0RF Referrals: [facility] [Provider Group] [facility] [Provider Group] [place],[facility] [Primary Care Provider] - Interventions: ED Discharge Assessment Last Done: 09/26/23 18:13 Discharge Date/Time: 09/26/23 18:14 Print Language: Swedish
[2023-09-26 17:05] VITALS: BP 115/64; PULSE 59; RESP 16; TEMP 36.9; O2SAT 97
[2023-09-26 17:23] LABS: Appearance Urine Clear; Color Urine Yellow; Glucose Urine UA Negative (Negative); Leukocyte Esterase Urine Negative (Negative); Nitrite Urine Negative (Negative); PH 5.5 (5.0-9.0); Urine Blood Negative (Negative); Urine Ketones Negative (Negative); Urine Protein Negative (Neg-Trace)
[2023-09-26 17:24] LABS: UPreg QC Valid YES; Urine Pregnancy NEGATIVE (NEGATIVE)
[2023-09-26] MEDS: cefTRIAXone sodium 500 MG, Lidocaine HCl 1 % MPF 1 ML IM (18:00)
[2023-09-26] MEDS: Doxycycline Monohydrate 100 MG CAPSULE PO (18:00)
[2023-09-26 18:13] VITALS: BP 115/64; PULSE 59; RESP 16; TEMP 36.9; O2SAT 97
[2023-09-27 09:38] LABS: Bacterial Vaginosis PCR POSITIVE (Negative); Candida Group PCR NOT DETECTED (Not Detect); Candida glab krusei PCR NOT DETECTED (Not Detect); Trichomonas vaginalis PCR NOT DETECTED (Not Detect)
[2023-09-27 10:05] LABS: CT PCR NOT DETECTED (Not Detect.); NG PCR NOT DETECTED (Not Detect.)
== END 2023-09-26 18:14 | disposition home or self-care (01) ==
PROVIDERS: Physician Assistant; Emergency Provider Emergency Medicine
DX: N76.0 Acute vaginitis (principal); R10.2 Pelvic and perineal pain
CPT/HCPCS: 0352U; 0353U; 81003; 81025; 96372; 99283; 99284; J0696

== ENCOUNTER 2025-01-19 18:04 | Emergency (ER) | payer SELFPAY ==
[2025-01-19 18:21] VITALS: BP 144/74; PULSE 73; RESP 20; TEMP 36.4; O2SAT 99; BMI 35.1
--- NOTE | 2025-01-19 18:22 | ED_ITS ---
HPI - General Adult General Chief complaint: General Medical Stated complaint: general testing Time Seen by Provider: 01/19/25 18:26 Source: patient, RN notes reviewed and old records reviewed Mode of arrival: ambulatory Limitations: no limitations History of Present Illness ED Provider: Gabi [facility] narrative: Patient is a 24 year old female presenting to the ED with complaint of vaginal irritation and a lot of white/yellow discharge after recent unprotected intercourse. States more yellow today then yesterday. Denies fevers. Denies abdominal pain. MD complaint: vaginal discharge Related Data Previous Rx's ?Medication ?Instructions ?Recorded famotidine 20 mg tablet 20 mg PO BID #20 tabs prochlorperazine maleate 10 mg 10 mg PO Q8H PRN nausea and 05/25/22 tablet (Compazine) vomiting, headache #10 tabs omeprazole magnesium 20 mg 20 mg PO DAILY #30 tabs tablet,delayed release (Prilosec OTC) ondansetron 4 mg disintegrating 4 mg PO Q8-12H PRN erica sea and 05/29/22 tablet vomiting #7 tabs doxycycline hyclate 100 mg tablet 100 mg PO BID 7 days #14 tabs 09/26/23 metronidazole 500 mg tablet 500 mg PO BID 7 days #14 t abs 09/28/23 ondansetron HCl 4 mg tablet 4 mg PO Q6H #20 tabs 09/27 doxycycline hyclate 100 mg capsule 100 mg PO BID #13 c aps 01/19/25 Allergies Allergy/AdvReac Type Severity Reaction Status Date / Time No Known Allergies (No Known Allergy Verified 01/19/25 18:24 Allergies*) Review of Systems Review of Systems: Yes all other systems are reviewed and are negative Constitutional: Constitutional: Reports as per HPI [facility] Past Medical History Medical History Asthma Social History Social History Substance Use Type: Marijuana Advance Directives: No Advance Directives Information Provided: Yes Do you have a plan to hurt others: No Plan Physical Exam ED Vital Signs: Vital Signs - 24 hr 01/19/25 18:21 Temperature 97.5 F Pulse Rate 73 Respiratory Rate 20 Blood Pressure 144/74 H Pulse Oximetry 99 Oxygen Delivery Method Room Air BMI result Body Mass Index 35.1 Vital signs have been reviewed and appear to be correct. Blood pressure normal. Heart rate normal. Respiratory rate normal. Temperature normal. Oxygen saturation normal. Const General: cooperative, healthy appearing and no acute distress Orientation/consciousness: oriented to person, oriented to place, oriented to time and patient oriented x3 Limitations: no limitations HENMT Head: Yes normocephalic and Yes atraumatic Ears: external ears normal General nose exam: Normal external nose present Face and sinus: Yes face symmetric Mouth: oropharynx normal and moist mucous membranes Throat: Yes uvula midline Eyes Pupils: Equal, round and reactive pupils present Neck Neck: Yes normal visual inspection and Yes supple Resp Effort & Inspection: normal respiratory effort and able to speak in complete sentences Auscultation: clear to auscultation bilaterally Cardio Rate: regular rate Rhythm: regular rhythm Heart sounds: S1 normal heart sound present and S2 normal heart sound present GI Palpation (GI): Soft to palpation and nontender Auscultation: normoactive bowel sounds General: Yes no CVA tenderness Back/Spine/Pelvis Back: no CVA tenderness Skin General skin exam: elasticity normal and turgor normal Neuro General: oriented to person, oriented to place, oriented to time, patient oriented x3, moves all extremities, no focal motor deficits and CN's II-XI intact bilaterally Cranial nerves: Yes Equal, round and reactive pupils present Cognition (Neuro): normal cognition Extrem General: Yes full ROM, Yes no pedal edema and Yes no calf tenderness Psych Mental Status: mental status grossly normal Affect: normal affect Thought process: Normal thought process present Course Course Course Narrative: 01/22/25 1557 ARIADNE Ashley: Attempted to contact patient due to positive BV and allison results. No answer, left VM to call the ED. 01/27/2025 0823 Luz Cuellar PA-C ---> Patient called several times, no answer, certified letter generated. Medications Administered Discontinued Medications Generic Name Dose Route Start Last Admin Trade Name Freq PRN Reason Stop Dose Admin Ceftriaxone Sodium 500 mg/ 0 mg 01/19/25 18:48 01/19/25 18:58 Lidocaine HCl 1 ml IM 01/19/25 18:49 1 kit ONCE ONE Administration Doxycycline Monohydrate 100 mg 01/19/25 18:48 01/19/25 18:58 Doxycycline Monohydrate 100 Mg Capsule PO 01/19/25 18:49 100 mg ONCE ONE Administration Medical Decision Making Medical Decision Making [facility] Narrative: Patient is a 24 year old female presenting to the ED with complaint of vaginal irritation and a lot of white/yellow discharge after recent unprotected intercourse. On exam patient is awake, A+Ox3, VS WNL, afebrile, normal neurological exam without focal deficits, physical exam findings as above. Given reported symptoms and physical exam findings, initial differential includes but is not limited to UTI, STI. Patient electing to defer pelvic exam and perform self swabs. Given that she is afebrile and without abdominal pain, I am comfortable with this. Swabs will not be resulted until tomorrow per lab. Patient prefers to receive empiric treatment in the ED tonight for gonorrhea and chlamydia. Will contact with any positive results when available. Strict return Differential Diagnosis Differential Diagnoses: The differential diagnosis associated with the presentation includes as per [facility] Admission/Observation Consideration of admission/observation: Escalation of care including admission/observation considered Patient would have been admitted to the hospital and transferred to appropriate facility had their clinical presentation warranted hospital admission. Lab Data Labs: Lab Results 01/19/25 Range/Units 18:38 Urine Color Yellow Urine Appearance Cloudy Urine pH 5.5 (5.0-9.0) Ur Specific [place] 1.015 (1.005-1.025) Urine Protein Negative (Neg-Trace) mg/dL Urine Glucose (UA) Negative (Negative) mg/dL Urine Ketones Negative (Negative) mg/dL Urine Blood Negative (Negative) Urine Nitrite Negative (Negative) Ur Leukocyte Esterase Large (3+) H (Negative) Urine RBC 0-2 (0-2) /HPF Urine WBC >50 H (0-5) /HPF Ur Squamous Epith Cells 11-20 (0-2) /HPF Urine Bacteria 1+ (None Seen) Hyaline Casts 0-2 (0-2) /LPF Urine Test NEGATIVE (NEGATIVE) Chlam trachomat DNA PCR NOT DETECTED (Not Detect.) N.gonorrhoeae DNA (PCR) NOT DETECTED (Not Detect.) T. vaginalis (PCR) NOT DETECTED (Not Detect) Bact vaginosis (PCR) POSITIVE A (Negative) C. krusei/glabrata (PCR) NOT DETECTED (Not Detect) Allison group (PCR) DETECTED A (Not Detect) External Record Review External record reviewed: Inpatient record, Office record and Outpatient record Prescription Management I considered prescription management with: Antibiotic Discharge Plan Discharge Clinical Impression: Vaginal discharge, Concern about STI in female without diagnosis Patient Disposition: Home, Self-Care Instructions: Sexually Transmitted Diseases (ED), Safe Sex Practices (ED), Vaginal Discharge (ED) Additional Instructions: You were found to have a sexually transmitted infection or concern for sexually transmitted infection on your visit today. You were given medications to treat you in the Emergency Department but if you were given antibiotics to take at home it is important you finish all these medications. Your sexual partners need to be advised they should seek care as well. It is important you abstain from sexual activity while you are on your antibiotics or having active symptoms. We will notify you of any POSITIVE pending results. For further testing including HIV and follow up for your visit you can reach out to your primary care doctor, [facility], or [facility]. [facility] [place] [phone] [place] [address] [phone] Prescriptions: New doxycycline hyclate 100 mg capsule 100 mg PO BID Qty: 13 0RF No Action prochlorperazine maleate [Compazine] 10 mg tablet 10 mg PO Q8H PRN (Reason: nausea and vomiting, headache) Qty: 10 0RF famotidine 20 mg tablet 20 mg PO BID Qty: 20 0RF omeprazole magnesium [Prilosec OTC] 20 mg tablet,delayed release (DR/EC) 20 mg PO DAILY Qty: 30 0RF ondansetron 4 mg tablet,disintegrating 4 mg PO Q8-12H PRN (Reason: nausea and vomiting) Qty: 7 0RF doxycycline hyclate 100 mg tablet 100 mg PO BID 7 Days Qty: 14 0RF metronidazole 500 mg tablet 500 mg PO BID 7 Days Qty: 14 0RF ondansetron HCl 4 mg tablet 4 mg PO Q6H Qty: 20 0RF Interventions: ED Discharge Assessment Last Done: 01/19/25 19:03 Discharge Date/Time: 01/19/25 19:03 Print Language: Luxembourgish
[2025-01-19 18:46] LABS: Appearance Urine Cloudy; Glucose Urine UA Negative (Negative); PH 5.5 (5.0-9.0); Specific Gravity - Urine 1.015 (1.005-1.025); UMIC TRIGGER UACC YES
[2025-01-19 18:48] LABS: UPreg QC Valid YES
[2025-01-19 18:51] LABS: UACC Culture Trigger YES
[2025-01-19] MEDS: cefTRIAXone sodium 500 MG, Lidocaine HCl 1 % MPF 1 ML IM (18:58)
[2025-01-19 19:03] VITALS: BP 144/74; PULSE 73; RESP 20; TEMP 36.4; O2SAT 99
[2025-01-20 03:27] LABS: Bacterial Vaginosis PCR POSITIVE (Negative); Candida Group PCR DETECTED (Not Detect); Candida glab krusei PCR NOT DETECTED (Not Detect); Trichomonas vaginalis PCR NOT DETECTED (Not Detect)
[2025-01-20 03:58] LABS: CT PCR NOT DETECTED (Not Detect.); NG PCR NOT DETECTED (Not Detect.)
== END 2025-01-19 19:03 | disposition home or self-care (01) ==
PROVIDERS: Registered Nurse Emergency; Emergency Provider Emergency Medicine
DX: N89.8 Other specified noninflammatory disorders of vagina (principal); Z20.2 Contact with and (suspected) exposure to infections with a predominantly sexual mode of transmission; Z72.51 High risk heterosexual behavior
CPT/HCPCS: 81001; 81025; 81515; 87086; 87491; 87591; 96372; 99282; 99284; J0696; J2003